=== PATIENT | male | born 1985 | race Caucasian/White ===

== ENCOUNTER 2020-10-23 18:16 | Emergency (ER) | payer BC ==
[2020-10-23 18:23] VITALS: BP 135/79
[2020-10-23] MEDS ORDERED: BUFFERED LIDOCAINE 10 ML SYRINGE SUBQ STA (18:31)
--- NOTE | 2020-10-23 19:01 | ED Physician Documentation ---
History of Present Illness - Stated complaint Stated Complaint: LT FINGER LAC - Chief complaint Chief Complaint: Laceration - History obtained from History obtained from: Patient - Additonal information Additional information: 35-year-old male presents to the emergency department for evaluation and treatment of a left distal index finger laceration sustained at home this evening. He was reportedly peeling potatoes with a knife. He has a V-shaped lack on the distal fat pad with quite a bit of bleeding. He has preserved flexion extension at the DIP joint. 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 Tetanus is up-to-date within 5 years Review of Systems Constitutional: reports: Reviewed and negative Throat: reports: Reviewed and negative Cardiac: reports: Reviewed and negative Respiratory: reports: Reviewed and negative GI: reports: Reviewed and negative : reports: Reviewed and negative Skin: reports: Laceration (s) (left distal index finger) PD PAST MEDICAL HISTORY - Allergies Allergies/Adverse Reactions: Allergies Allergy/AdvReac Type Severity Reaction Status Date / Time No Known Drug Allergies Allergy Verified 10/23/20 18:19 PD ED PE EXPANDED - Extremities Extremities: Left finger(s) (2.5 cm V-shaped lack fat pad distal left index finger. Preserved flexion extension at DIP. Patient has quite a bit of loss of fatty tissue.) Results - Vitals Vitals: Vital Signs - 24 hr 10/23/20 18:19 Temperature 36.5 C Heart Rate 70 Respiratory 16 Rate Blood Pressure 135/79 H O2 Saturation 100 Oxygen O2 Source Room air Procedures - Laceration (location) left index fingers Length in cm: 2.5 Wound type: Flap Neurovascular status: Sensory intact, Motor intact, Vascular intact Tendon involvement: Tendon intact Anesthesia: Lidocaine 1% Wound Preparation: Chlorhexadine, Irrigated copiously NS Skin layer closure: Size #-0 - enter number (4), Sutures - enter # (5) Other: Neurovascular intact, Dressing applied, Tetanus UTD Complexity: Simple PD MEDICAL DECISION MAKING - ED course Complexity details: d/w patient ED course: 35-year-old male presents emergency department with a V-shaped lack on the fat pad of his left index finger sustained this evening when cutting potatoes. He did lose a fair amount of subcutaneous tissue. The flap was closed with 5 of four-point 0 nylon sutures. His tetanus is up-to-date bleeding controlled. Will defer antibiotics given timely closure and clean appearance of wound. There is a possibility that the flap may not heal properly and routine wound care and emergent return precautions were discussed Departure - Departure Disposition: 01 Home, Self Care Clinical Impression: Finger laceration Qualifiers: Encounter type: initial encounter Finger: index finger Damage to nail status: without damage Foreign body presence: without foreign body Laterality: right Qualified Code(s): S61.210A - Laceration without foreign body of right index finger without damage to nail, initial encounter Condition: Stable Record reviewed to determine appropriate education?: Yes Instructions: ED Laceration Hand Comments: Jonathan the laceration should heal well in the long-term however there is a possibility that the flap may not survive. If you have concerns about the viability of this laceration it is important that you follow-up with urgent care or your primary care doctor in the next 3 to 4 days. Your suture should be removed in 7 to 10 days. In 24 hours you may gently wash your laceration with warm soap and water, apply any antibiotic ointment and then a simple bandage.
== END 2020-10-23 19:08 | disposition home or self-care (01) ==
LOC: ED 18:16
DX: S61.210A Laceration without foreign body of right index finger without damage to nail, initial encounter (principal); W26.0XXA Contact with knife, initial encounter; Y93.G1 Activity, food preparation and clean up; Y92.009 Unspecified place in unspecified non-institutional (private) residence as the place of occurrence of the external cause
CPT/HCPCS: 12001; 99281